=== PATIENT | female | born 1980 | race Caucasian/White ===

== ENCOUNTER 2017-10-23 07:21 | Inpatient (IN) | payer BC ==
[~2017-10-23 07:21] MED LIST: Dexamethasone 4 MG/ML SDV ONE; Glycopyrrolate 0.2 MG/ML 5 ML MDV ONE; Neostigmine Methylsulfate 1 MG/ML 5 ML Syringe ONE; Ondansetron 4 MG/2 ML SDV ONE; Propofol 200 MG/20 ML SDV ONE; Rocuronium 50 MG/5 ML Vial ONE; Succinylcholine 200 MG/10 ML MDV ONE; cefOXitin 2 GM Vial ONE
[2017-10-23] MEDS ORDERED: Celecoxib 200 MG Cap PO ONE (07:45)
[2017-10-23] MEDS ORDERED: Scopolamine 1.5 MG Transdermal Patch TRDERM SCH (07:45)
[2017-10-23] MEDS ORDERED: Acetaminophen 500 MG Tab PO ONE (07:45)
[2017-10-23] MEDS ORDERED: Gabapentin 300 MG Cap PO ONE (07:45)
[2017-10-23] MEDS ORDERED: Dextrose 5%-Lactated Ringers 1,000 ML IV SCH (08:15)
[2017-10-23] MEDS ORDERED: cefOXitin 2 GM in Sodium Chloride 0.9% 50 ML IV ONE (09:15)
[2017-10-23] MEDS ORDERED: Glucagon,Human Recombinant 1 MG Vial ONE (09:28)
[2017-10-23] MEDS ORDERED: Ketamine 500 MG/5 ML MDV IV ONE (09:30)
[2017-10-23] MEDS ORDERED: Lidocaine 2% 100 MG/5 ML Syringe IVPUSH ONE (09:30)
[2017-10-23] MEDS ORDERED: Ropivacaine 52 ML, Dexamethasone 8 MG, EPINEPHrine 0.4 MG, Sodium Chloride 0.9% 25.6 ML NERVRT ONE ×4 (09:30)
[2017-10-23] MEDS ORDERED: Lidocaine 0.4%/D5W 2 GM/500 ML BAG IV SCH (09:30)
[2017-10-23] MEDS ORDERED: fentaNYL 250 MCG/5 ML SDV ONE (09:58)
[2017-10-23] MEDS ORDERED: hydrOXYzine HCl 100 MG/2 ML SDV IM ONE ×2 (10:48→12:16)
[2017-10-23] MEDS ORDERED: fentaNYL 100 MCG/2 ML SDV IVPUSH ONE (11:03)
[2017-10-23] MEDS ORDERED: Meperidine PF 100 MG/ML Syringe IM ONE (12:16)
[2017-10-23] MEDS ORDERED: Metoclopramide 10 MG/2 ML SDV IVPUSH PRN (13:00)
[2017-10-23] MEDS ORDERED: Ondansetron 4 MG/2 ML SDV IVPUSH PRN (13:00)
[2017-10-23] MEDS ORDERED: Labetalol 20 MG/4 ML Syringe IVPUSH PRN (13:00)
[2017-10-23] MEDS ORDERED: diphenhydrAMINE 50 MG/ML SDV IVPUSH PRN (13:00)
[2017-10-23] MEDS: Gabapentin 250 MG/5 ML Solution ML 470 ML Bottle PO SCH ×2 (13:41→22:33)
[2017-10-23] MEDS: cefOXitin 2 GM in Sodium Chloride 0.9% 50 ML IV SCH ×2 (13:46→22:33)
[2017-10-23] MEDS ORDERED: Pantoprazole 40 MG Vial IVPUSH SCH (14:00)
[2017-10-23] MEDS ORDERED: MVI, Adult with Vitamin K 10 ML, Thiamine 100 MG, Chromium/Copper/Mang/Selen/Zn 1 ML in... IV SCH ×4 (16:00)
[2017-10-23] MEDS ORDERED: hydrOXYzine HCl 100 MG/2 ML SDV IM PRN (16:00)
[2017-10-23] MEDS: Acetaminophen Soln 650 MG/20.3 ML UD Cup PO SCH ×2 (16:04→22:36)
[2017-10-23] MEDS: Heparin Sodium 5,000 Units/ML Vial SUBCUT SCH (17:04)
[2017-10-23] MEDS: Dextrose 5%-Lactated Ringers 1,000 ML IV SCH (21:07)
[2017-10-23] MEDS ORDERED: Tamsulosin 0.4 MG Cap.ER PO ONE (22:37)
[2017-10-24] MEDS: Dextrose 5%-Lactated Ringers 1,000 ML IV SCH (02:42)
[2017-10-24] MEDS: cefOXitin 2 GM in Sodium Chloride 0.9% 50 ML IV SCH ×2 (02:43→09:10)
[2017-10-24] MEDS: Acetaminophen Soln 650 MG/20.3 ML UD Cup PO SCH ×4 (04:22→22:12)
[2017-10-24] MEDS: Heparin Sodium 5,000 Units/ML Vial SUBCUT SCH ×2 (05:23→17:15)
[2017-10-24] MEDS ORDERED: Rizatriptan 10 MG Tab.DIS PO PRN (07:53)
[2017-10-24] MEDS ORDERED: Levothyroxine 100 MCG Tab PO SCH (08:00)
[2017-10-24] MEDS ORDERED: Dextrose 5%-Lactated Ringers 1,000 ML IV SCH (08:00)
--- NOTE | 2017-10-24 08:51 | CR ---
UGI wo KUB HISTORY: eval R -Y GBP FINDINGS: Limited upper GI series was obtained without fluoroscopy. Water-soluble contrast was admini stered orally. Immediate along with 15 minute delayed images were obtained. Small gastric pouch is de monstrated. Contrast passes readily through the gastrojejunostomy into loops of jejunum. No obstructi on is identified. There is no contrast extravasation. Surgical drain is noted left upper quadrant. IMPRESSION: No postoperative complication identified status post Adele-en-Y gastric bypass.
[2017-10-24] MEDS ORDERED: Vitamin B Complex Tab PO SCH (09:00)
[2017-10-24] MEDS: Celecoxib 200 MG Cap PO SCH (09:16)
[2017-10-24] MEDS: SCOPOLAMINE PATCH CHECK TOP SCH (09:19)
[2017-10-24] MEDS ORDERED: Sodium Ferric Gluconate Cmplex 250 MG in Sodium Chloride 0.9% 100 ML IV SCH ×2 (09:30→10:00)
--- NOTE | 2017-10-24 11:00 | PN ---
DATE OF SERVICE: 10/23/2017 SUBJECTIVE: Mary is postop day #1 from a Adele-en-Y gastric bypass surgery. Her upper GI was normal. She has been up, ambulating. Does report pain in her left shoulder. Vital signs have been stable. Oral intake yesterday was 360 mL. REVIEW OF SYSTEMS: Remainder of review of systems is negative for any pertinent positives and negatives. OBJECTIVE: GENERAL: Mary Ribeiro is a 37-year-old female. VITAL SIGNS: TPR is 99.4, 73, and 16. Blood pressure 118/79. HEENT: Negative. NECK: Supple. HEART: Regular rate and rhythm. LUNGS: Clear. ABDOMEN: Dressings dry and intact. Abdominal binder is on. TOÑITO drain has put out 140 mL of a light pink serosanguineous drainage. EXTREMITIES: SCDs are on, and no peripheral edema. ASSESSMENT: Laparoscopic Adele-en-Y gastric bypass surgery, liver biopsy, repair of diaphragmatic hernia for morbid obesity, hepatomegaly, and diaphragmatic hernia. PLAN: 1. Discontinue gabapentin due to sleepiness. 2. Discontinue Barrow. 3. Decrease IV to 100 mL/hour. 4. Saline lock if oral intake adequate. 5. Dressing off, may shower. 6. Communication order written for 3 med cups per hour, record at bedside. 7. Synthroid 200 mcg p.o. Monday, Monday, , and Monday and Synthroid 100 mcg oral Monday, Monday, and Monday. 8. Maxalt 10 mg p.o. p.r.n. migraine headache. 9. Good pulmonary toilet. 10.We will evaluate p.r.n. or in a.m. Glenny Foster PA-C /[id number]
[2017-10-24] MEDS ORDERED: Pantoprazole 40 MG Delayed-Release Granules 1 Packet PO SCH (14:00)
[2017-10-24] MEDS ORDERED: MVI, Adult with Vitamin K 10 ML, Thiamine 100 MG, Chromium/Copper/Mang/Selen/Zn 1 ML in... IV SCH ×4 (16:00)
[2017-10-25] MEDS: Heparin Sodium 5,000 Units/ML Vial SUBCUT SCH (05:17)
[2017-10-25] MEDS: Acetaminophen Soln 650 MG/20.3 ML UD Cup PO SCH ×2 (05:17→09:20)
[2017-10-25] MEDS: Celecoxib 200 MG Cap PO SCH (07:14)
[2017-10-25] MEDS ORDERED: Levothyroxine 100 MCG Tab PO SCH (07:30)
[2017-10-25] MEDS ORDERED: Cyanocobalamin (Vitamin B12) 1,000 MCG/ML SDV IM ONE (09:00)
[2017-10-25] MEDS: SCOPOLAMINE PATCH CHECK TOP SCH (09:19)
--- NOTE | 2017-10-25 21:23 | DISCH ---
ADMISSION DIAGNOSES: Morbid obesity; migraine headaches; hypothyroidism; and major recurrent depression, in remission. DISCHARGE DIAGNOSES: Laparoscopic Adele-en-Y gastric bypass surgery, liver biopsy, repair of diaphragmatic hernia for morbid obesity, hepatomegaly, and diaphragmatic hernia. Date, 10/23/2017. HISTORY: Mary Ribeiro is a 37-year-old female with longstanding history of morbid obesity and increasing comorbidities. After preoperative evaluation and discussion of possible risks and possible complications, she wished to proceed with surgical procedure. HOSPITAL COURSE: Mary had her surgery on 10/23/2017. She had no operative complications. On postop day 1, her upper GI was normal. She was started on a step-2 gastric bypass diet without cereal. On postop day 3, her activity was good. Vital signs were stable. She had dietary instruction, and she was ready to be discharged to home. PHYSICAL EXAMINATION: GENERAL: Mary Ribeiro is a 37-year-old female. Height is 5 feet 3 inches, weight is 226 pounds, BMI is 40. VITAL SIGNS: 97.9, 79, 20, blood pressure 127/79. HEENT: Negative. NECK: Supple. HEART: Regular rate and rhythm. LUNGS: Clear. ABDOMEN: Incisions look good at 4 x 4 over TOÑITO drain site. Abdominal binder is on. EXTREMITIES: Without peripheral edema. DISPOSITION: Discharged to home. CONDITION: Stable and improving. FOLLOWUP APPOINTMENT: With Glenny Foster PA-C, on 11/01/2017 at 10 a.m. at [facility]. DISCHARGE MEDICATIONS: New prescriptions: Tylenol 650 mg q.6 hours for 2 weeks; Celebrex 200 mg 1 daily, #14, take with food; levothyroxine 200 mcg oral Monday, , Monday and Monday and 100 mcg Monday, Monday, and Monday; Maxalt 10 mg oral as directed p.r.n. migraine headache. DIET: Step-2 gastric bypass diet without cereal until 11/08/2017. ACTIVITY: No lifting greater than 10 pounds for 2 weeks. Walk 6 times daily inside your home. Driving, do not drive for 1 week. May shower. DISCHARGE INSTRUCTIONS: Notify provider if any fever, increased pain, nausea, or vomiting. Keep site clean and dry. Wear abdominal binder for 2 weeks and then as tolerated. Use incentive spirometer 10 times every hour while awake.
--- NOTE | 2017-11-02 09:15 | OR ---
DATE OF PROCEDURE: 10/23/2017 PREOPERATIVE DIAGNOSIS: Morbid obesity. POSTOPERATIVE DIAGNOSES: 1. Morbid obesity. 2. Marked hepatomegaly. 3. Paraesophageal diaphragmatic hernia. OPERATIVE PROCEDURES: 1. Laparoscopic Adele-en-Y gastric bypass with long limb gastroenterostomy (91409). 2. Ralf-Cut needle liver biopsy (82190). 3. Repair of paraesophageal diaphragmatic hernia (21648). ANESTHESIA: General. ASSISTANTS: 1. Glenny Foster PA-C. 2. PREM Lackey. 3. PREM Steele. INDICATION FOR PROCEDURE: This is a 37-year-old status post Adele-en-Y gastric bypass, presenting with longstanding morbid obesity and increasingly significant comorbidities. After preoperative evaluation and discussion, she wished to proceed with a gastric bypass procedure. Potential risks of the procedure including bleeding, infection, leaks from various GI tract closures, problems with bowel obstruction over time, as well as the possibility of cardiopulmonary, septic, or hemorrhagic complications leading to were discussed, and the patient wishes to proceed. DETAILS OF PROCEDURE: The patient was taken to the operating room, and after general endotracheal anesthesia was induced, she was placed in a lithotomy position. An orogastric tube was placed and the abdomen prepped and draped. At 15 cm inferior and 5 cm left of xiphoid process, a transverse incision was made, and the peritoneal cavity entered under direct vision with an Optiview trocar and inflated to 15 mmHg pressure with CO2. Laparoscope was then reinserted. No underlying trocar insertion site injuries were seen. Following this, 5 additional trocars were placed across the upper and mid abdomen. General exploration was undertaken. With direct visualization of the correct position of the needle, subcostal transversus abdominis plane blocks were placed using the standard solution. The liver was then inspected and noted to be markedly hypertrophic in terms of being roughly 2 to 3 times normal size and grossly somewhat fatty infiltrated. Ralf-Cut needle biopsy was obtained from the left lobe of the liver. Minimal bleeding from the biopsy site was controlled with electrocautery. The omentum was then divided in the midline at the level of the transverse colon. At that point, the small bowel was identified at the ligament of Treitz. Small bowel was traced out 200 cm distal to that point, and it was divided transversely with a ENMANUEL stapler. Small bowel was then traced down 150 cm, where the [id number] enteroenterostomy was accomplished with an internal firing of the Endo-ENMANUEL 60 mm stapler. The common opening was closed transversely with the same stapler, angles anastomosed, and mesenteric defect approximated with some 0 Ethibond stitch, along with fibrin sealant. The divided end of the Adele limb was then from the mesentery for a few centimeters, which allowed an antecolic positioning of the Adele limb up to the level of the gastroesophageal junction without tension. The liver was then retracted anteriorly. The patient was noted to have a moderate-sized paraesophageal diaphragmatic hernia with prolapse of a tongue of omentum, the gastric fundus, and some perigastric fat in the plane anterior to the course of the esophagus. This was reduced, and the peritoneum overlying it incised and reflected downward. An anterior repair of the diaphragmatic hernia was then accomplished with 0 Ethibond sutures, reinforced with PTFE pledgets. At this point, the gastrointestinal balloon catheter was inflated to 15 mL, pulled up snuggly against the EG junction. Gastric wall over the apex of the balloon was then marked with electrocautery and balloon catheter deflated and pulled up from the esophagus. The lesser omental tissue adjacent to the gastric cardia was then incised, allowing dissection behind the stomach at that level. Pouch formation was initiated with a ENMANUEL firing at the level of the cauterized armand at the gastric cardia. Pouch was then completed with additional firings of ENMANUEL shelby up to and through the angle of His. Upon completion of the pouch, both staple lines were noted to be intact. The anvil of a 25-mm EEA stapler was then attached to a Lewis sump type tube. The latter was brought down through the mouth and out through the small opening at the gastric pouch, allowing the anvil likewise to be pulled down to within the gastric pouch. The divided end of the Adele limb was then opened and the main body of the EEA stapler passed several centimeters in the lumen of the small bowel, brought out the anvil and united with it, thus creating the gastrojejunostomy. Upon removal of the stapler, double donuts of mucosa were noted within this. Small bowel was closed off with a vascular staple line. Gastrojejunostomy was reinforced with some 3-0 Vicryl seromuscular stitch, along with fibrin sealant. Leak test was accomplished with injection of 120 mL of air in the gastric pouch, while submerged within a cefoxitin-containing saline solution. No leaks were identified. One Ángel-Vega drain was then placed through the left lateral trocar site, positioned up against the gastrojejunostomy and from there into the splenic fossa. The trocars were sequentially removed, and the peritoneal cavity deflated. Incisions were closed with 4-0 Vicryl skin stitch, which was also used to affix the drain. The patient was taken to the recovery room in a satisfactory condition. Physician assistant professor of dietetics, Glenny Foster, played an essential role in assisting in this case, helping to position the patient, retract structures as needed, as well as suturing and cutting sutures when indicated. Her presence improved patient safety and decreased the operative time. Dashawn Nguyen MD /[id number]
== END 2017-10-25 10:05 | disposition home or self-care (01) | DRG 403 ==
LOC: JP.SDS 07:21 → JP.MS 07:21 → EDSTATUS 09:00 → UNDOADMIN 10:00 → JP.2SS 10:00
PROVIDERS: ADMIT Surgery; ATTEND Surgery
PROC: 0D164ZA Bypass Stomach to Jejunum, Percutaneous Endoscopic Approach (ICD-10-PCS; principal; 2017-10-23)
PROC: 3E0T3BZ Introduction of Anesthetic Agent into Peripheral Nerves and Plexi, Percutaneous Approach (ICD-10-PCS; 2017-10-23)
PROC: 0BQT4ZZ Repair Diaphragm, Percutaneous Endoscopic Approach (ICD-10-PCS; 2017-10-23)
PROC: 0FB24ZX Excision of Left Lobe Liver, Percutaneous Endoscopic Approach, Diagnostic (ICD-10-PCS; 2017-10-23)
PROC: 3E0T3BZ Introduction of Anesthetic Agent into Peripheral Nerves and Plexi, Percutaneous Approach (ICD-10-PCS; 2017-10-23)
DX: E66.01 Morbid (severe) obesity due to excess calories (principal); Z68.41 Body mass index [BMI] 40.0-44.9, adult; K44.9 Diaphragmatic hernia without obstruction or gangrene; R16.0 Hepatomegaly, not elsewhere classified; E03.9 Hypothyroidism, unspecified; G43.909 Migraine, unspecified, not intractable, without status migrainosus; F32.9 Major depressive disorder, single episode, unspecified; K76.0 Fatty (change of) liver, not elsewhere classified
CPT/HCPCS: 36415; 74240; 74240-26; 80048; 81025; 82962; 83735; 84100; 86850; 86900; 86901; 88307; 88313; A9270-GY; C9113; J0171; J0330; J0694; J1100; J1610; J1644; J2001; J2175; J2405; J2704; J2710; J2795; J2916; J3010; J3410; J3411; J3420; J7030; J7040; J7042; J7050

== ENCOUNTER 2017-11-07 08:47 | Day surgery (SDC) | payer BC ==
[2017-11-07] MEDS: Lactated Ringers 1,000 ML IV ONE (09:24)
[2017-11-07] MEDS: MVI, Adult with Vitamin K 10 ML, Thiamine 100 MG, Chromium/Copper/Mang/Selen/Zn 1 ML in... IV ONE ×4 (10:27)
[2017-11-07] MEDS ORDERED: Cyanocobalamin (Vitamin B12) 1,000 MCG/ML SDV IM ONE (10:30)
[2017-11-07] MEDS ORDERED: Propofol 200 MG/20 ML SDV ONE (10:33)
[2017-11-07] MEDS ORDERED: Midazolam 1 MG/ML 2 ML SDV ONE (10:33)
[2017-11-07] MEDS ORDERED: fentaNYL 100 MCG/2 ML SDV ONE (10:33)
[2017-11-07] MEDS: Glycopyrrolate 0.2 MG/ML 2 ML SDV IVPUSH ONE (10:40)
[2017-11-07 13:19] VITALS: BP 106/70
--- NOTE | 2017-11-11 20:46 | OR ---
DATE OF PROCEDURE: 11/07/2017 PREOPERATIVE DIAGNOSIS: Possible stricture at gastrojejunostomy. POSTOPERATIVE DIAGNOSIS: Minimal stricture at gastrojejunostomy. OPERATIVE PROCEDURE: Upper GI endoscopy with dilation of gastrojejunostomy (76065). ANESTHESIA: IV sedation. INDICATION FOR PROCEDURE: The patient is status post Adele-en-Y gastric bypass on 10/23/2017 i.e. around 15 days ago. She was eating some hard boiled eggs yesterday and developed inability to maintain oral intake, and was referred for upper endoscopy at this time. The plan is to proceed with upper GI endoscopy with dilation and/or removal of foreign body as indicated. Potential risks including bleeding and perforation were discussed, and the patient wishes to proceed. DETAILS OF PROCEDURE: The patient was taken to the operating room and placed in a left lateral decubitus position. IV sedation was administered, after which the upper GI endoscope was passed orally through the length of the esophagus and into the area of the gastric pouch that is the gastrojejunostomy. This appeared to be most minimally narrowed, and there was no retained food or fluid at this point. A Bard gastrointestinal balloon catheter was inflated to 30-Ethiopian size given patient's quite recent surgery and this was well positioned after which catheter was deflated and withdrawn. There were no evident complications that were noted. The patient was taken to the recovery room in satisfactory condition. Dashawn Nguyen MD /[id number]
== END 2017-11-07 12:45 | disposition home or self-care (01) ==
LOC: JP.SDS 08:47
PROVIDERS: ATTEND Surgery
DX: K91.89 Other postprocedural complications and disorders of digestive system (principal)
CPT/HCPCS: 81025; J2250; J2704; J3010; J3411; J3490; J7120